=== PATIENT | female | born 1985 | race Asian ===

== ENCOUNTER 2025-02-02 20:26 | Emergency (ER) | payer MEDICAID, OTHER ==
[~2025-02-02] VITALS: Ht 157.5 cm; Wt 51.3 kg
[2025-02-02] MEDS ORDERED: IBUP-1953 PO (20:56)
[2025-02-02 21:19] VITALS: BP 125/68; TEMP 98.1; O2SAT 96
== END 2025-02-02 21:20 | disposition home or self-care (01) ==
LOC: ER 20:39
DX: M54.2 Cervicalgia (principal); M25.511 Pain in right shoulder; M25.512 Pain in left shoulder; E06.3 Autoimmune thyroiditis; V43.52XA Car driver injured in collision with other type car in traffic accident, initial encounter; Y93.89 Activity, other specified; Y92.89 Other specified places as the place of occurrence of the external cause; Y99.8 Other external cause status